=== PATIENT | female | born 1985 ===

== ENCOUNTER 2020-06-02 11:46 | Emergency (ER) | payer SELFPAY ==
--- NOTE | 2020-06-02 13:12 | Emergency Department Report ---
Blank Doc - Documentation Documentation: 35-year-old female that presents with several syncopal episodes. Patient pam carney is on detox program for alcohol abuse the past 8 days. Patient also is complaining of tremors. Last alcoholic drink was 8 days ago. 1- This initial assessment/diagnostic orders/clinical plan/ treatment(s) is/are subject to change based on pt's health status, clinical progression and re- assessment by fellow clinical providers in the ED. Further treatment and workup at subsequent clinical provers discretion. Patient/guardians urged not to elope from ED as their condition may be serious if not clinically assessed and managed. 2-labs 3-UA 4-CT head
[2020-06-02 13:50] LABS: Basophils # (Auto) 0.1 K/mm3 (0.0-0.1); Basophils % (Auto) 1.1 % (0.0-1.8); Eosinophils # (Auto) 0.6 K/mm3 (0.0-0.4); Eosinophils % (Auto) 6.7 % (0.0-4.3); Hematocrit 36.6 % (30.3-42.9); Hemoglobin 12.4 gm/dl (10.1-14.3); Lymphocytes # (Auto) 2.3 K/mm3 (1.2-5.4); Lymphocytes % (Auto) 27.3 % (13.4-35.0); Mean Corpuscular HGB Conc 34 % (30-34); Mean Corpuscular Volume 90 fl (79-97); Monocytes # (Auto) 0.7 K/mm3 (0.0-0.8); Platelet Count 385 K/mm3 (140-440); Red Blood Count 4.05 M/mm3 (3.65-5.03); Red Cell Distribution Width 14.6 % (13.2-15.2)
[2020-06-02 14:28] LABS: Bacteria,Urine 2+ /HPF (Negative); Bilirubin,Urine NEG (Negative); Blood,Urine MOD (Negative); Color,Urine Yellow (Yellow); Mucus,Urine FEW /HPF; Protein,Urine <15 mg/dL mg/dL (Negative); Urobilinogen,Urine < 2.0 mg/dL (<2.0)
[2020-06-02 15:00] LABS: Creatine Kinase MB < 1.0 ng/mL (0.0-4.0)
--- NOTE | 2020-06-02 15:17 | Cat Scan Report ---
CT head/brain wo con INDICATION / CLINICAL INFORMATION: 35 years Female; Syncope. TECHNIQUE: Routine CT head without contrast. All CT scans at this location are performed using CT dos e reduction for ALARA by means of automated exposure control. COMPARISON: None. FINDINGS: BRAIN / INTRACRANIAL CONTENTS: No acute hemorrhage, mass effect, midline shift, hydrocephalus, or acu te, large territorial infarct. No signs of significant atrophy or chronic infarct. No significant whi te matter abnormality seen. CRANIOCERVICAL JUNCTION: No significant abnormality. ORBITS: No significant abnormality of visualized orbits. SINUSES / MASTOIDS: Mild to moderate mucosal thickening in the ethmoids. ADDITIONAL FINDINGS: None. IMPRESSION: 1. No focal mass, hemorrhage, hydrocephalus, or acute, large territorial infarct. Signer Name: Alberto Patel MD, III Signed: 06/02/2020 3:13 PM Workstation Name: [id number]
[2020-06-02 15:34] LABS: Amphetamine Screen,Urine PRESUMPTIVE NEGATIVE; Benzodiazepines Screen,Urine PRESUMPTIVE NEGATIVE; Cannabinoid Screen,Urine PRESUMPTIVE POSITIVE; Cocaine Screen,Urine PRESUMPTIVE NEGATIVE; Methadone Screen,Urine PRESUMPTIVE NEGATIVE; Opiate Screen,Urine PRESUMPTIVE NEGATIVE
[2020-06-02] MEDS ORDERED: ACETAMINOPHEN 500 MG TAB PO ONE (18:25)
[2020-06-02] MEDS ORDERED: IBUPROFEN 800 MG TAB PO ONE (18:25)
[2020-06-02] MEDS ORDERED: LORazepam 1 MG TAB PO ONE (18:25)
--- NOTE | 2020-06-02 18:42 | Emergency Department Report ---
ED General Adult HPI - General Chief complaint: Syncope Stated complaint: SYNCOPE Time Seen by Provider: 06/02/20 13:02 Source: patient, EMS Mode of arrival: Ambulatory Limitations: No Limitations - History of Present Illness Initial comments: The patient presents to the emergency department the chief complaint of passing out. Patient states she was in class at her recovery center when she began to get hot and clammy. Patient states she stood up to ask the teacher if she can be excused when she passed out. Patient states that she did have chest pain or shortness of breath prior to passing out or currently. Patient states this occurred around 10 AM this morning. Patient has not eaten breakfast this morning and states that she did not have a regular dinner last night. Patient has a history of syncope and seizures. Patient is very anxious on exam and asked if she can have some Ativan to settle her down. Patient is at the recovery center for alcohol abuse. Patient also complains of a mild headache and describes it as throbbing in nature and not the worst headache of her life. -: Sudden Location: head Severity scale (0 -10): 3 Quality: other (Throbbing) Consistency: constant Improves with: none Worsens with: none Associated Symptoms: denies other symptoms Treatments Prior to Arrival: none - Related Data Allergies Allergy/AdvReac Type Severity Reaction Status Date / Time codeine Allergy Hives Verified 06/02/20 12:49 ED Review of Systems ROS: Stated complaint: SYNCOPE Other details as noted in HPI Comment: All other systems reviewed and negative Constitutional: denies: chills, fever Eyes: denies: eye pain, eye discharge, vision change ENT: denies: ear pain, throat pain Respiratory: denies: cough, shortness of breath, wheezing Cardiovascular: denies: chest pain, palpitations Endocrine: no symptoms reported Gastrointestinal: denies: abdominal pain, nausea, diarrhea Genitourinary: denies: urgency, dysuria, discharge Musculoskeletal: denies: back pain, joint swelling, arthralgia Skin: denies: rash, lesions Neurological: denies: headache, weakness, paresthesias Psychiatric: denies: anxiety, depression Hematological/Lymphatic: denies: easy bleeding, easy bruising ED Past Medical Hx - Past Medical History Additional medical history: SVT/ ANEMIA - Social History Smoking Status: Never Smoker Substance Use Type: Alcohol ED Physical Exam - General Limitations: No Limitations General appearance: alert, in no apparent distress, anxious - Head Head exam: Present: atraumatic, normocephalic - Eye Eye exam: Present: normal appearance - ENT ENT exam: Present: mucous membranes moist - Neck Neck exam: Present: normal inspection - Respiratory Respiratory exam: Present: normal lung sounds bilaterally. Absent: respiratory distress, wheezes - Cardiovascular Cardiovascular Exam: Present: regular rate, normal rhythm. Absent: systolic murmur, diastolic murmur, rubs, gallop - GI/Abdominal GI/Abdominal exam: Present: soft, normal bowel sounds. Absent: distended, tend erness - Extremities Exam Extremities exam: Present: normal inspection - Back Exam Back exam: Present: normal inspection - Neurological Exam Neurological exam: Present: alert, oriented X3, CN II-XII intact, other (Normal finger-nose, [id number], rapid hand movement). Absent: motor sensory deficit - Psychiatric Psychiatric exam: Present: normal affect, normal mood - Skin Skin exam: Present: warm, dry, intact, normal color. Absent: rash ED Course Vital Signs 06/02/20 06/02/20 06/02/20 12:55 17:53 18:00 Temperature 98.3 F Pulse Rate 55 L Pulse Rate [ 56 L Lying] Pulse Rate [ 58 L Sitting] Pulse Rate [ 50 L Standing] Respiratory 18 16 Rate Blood Pressure 115/69 Blood Pressure 125/69 [Lying] Blood Pressure 126/69 [Sitting] Blood Pressure 130/78 [Standing] O2 Sat by Pulse 100 99 Oximetry ED Medical Decision Making - Lab Data Result diagrams: 06/02/20 13:20 Lab Results 06/02/20 06/02/20 06/02/20 Range/Units 13:20 13:20 13:20 WBC 8.3 (4.5-11.0) K/mm3 RBC 4.05 (3.65-5.03) M/mm3 Hgb 12.4 (10.1-14.3) gm/dl Hct 36.6 (30.3-42.9) % MCV 90 (79-97) fl MCH 31 (28-32) pg MCHC 34 (30-34) % RDW 14.6 (13.2-15.2) % Plt Count 385 (140-440) K/mm3 Lymph % (Auto) 27.3 (13.4-35.0) % [place] % (Auto) 8.0 H (0.0-7.3) % Eos % (Auto) 6.7 H (0.0-4.3) % Baso % (Auto) 1.1 (0.0-1.8) % Lymph # (Auto) 2.3 (1.2-5.4) K/mm3 [place] # (Auto) 0.7 (0.0-0.8) K/mm3 Eos # (Auto) 0.6 H (0.0-0.4) K/mm3 Baso # (Auto) 0.1 (0.0-0.1) K/mm3 Seg Neutrophils % 56.9 (40.0-70.0) % Seg Neutrophils # 4.7 (1.8-7.7) K/mm3 Magnesium 2.10 (1.7-2.3) mg/dL Total Creatine Kinase 129 (30-135) units/L CK-MB (CK-2) < 1.0 (0.0-4.0) ng/mL CK-MB (CK-2) Rel Index 0.7 (0-4) Troponin T < 0.010 (0.00-0.029) ng/mL HCG, Qual Negative (Negative) Urine Color (Yellow) Urine Turbidity (Clear) Urine pH (5.0-7.0) Ur Specific [place] (1.003-1.030) Urine Protein (Negative) mg/dL Urine Glucose (UA) (Negative) mg/dL Urine Ketones (Negative) mg/dL Urine Blood (Negative) Urine Nitrite (Negative) Urine Bilirubin (Negative) Urine Urobilinogen (<2.0) mg/dL Ur Leukocyte Esterase (Negative) Urine WBC (Auto) (0.0-6.0) /HPF Urine RBC (Auto) (0.0-6.0) /HPF U Epithel Cells (Auto) (0-13.0) /HPF Urine Bacteria (Auto) (Negative) /HPF Urine Mucus /HPF Urine Opiates Screen Urine Methadone Screen Ur Barbiturates Screen Ur Phencyclidine Scrn Ur Amphetamines Screen U Benzodiazepines Scrn Urine Cocaine Screen U Marijuana (THC) Screen Drugs of Abuse Note Plasma/Serum Alcohol (0-0.07) % 06/02/20 06/02/20 06/02/20 Range/Units 13:20 Unknown Unknown WBC (4.5-11.0) K/mm3 RBC (3.65-5.03) M/mm3 Hgb (10.1-14.3) gm/dl Hct (30.3-42.9) % MCV (79-97) fl MCH (28-32) pg MCHC (30-34) % RDW (13.2-15.2) % Plt Count (140-440) K/mm3 Lymph % (Auto) (13.4-35.0) % [place] % (Auto) (0.0-7.3) % Eos % (Auto) (0.0-4.3) % Baso % (Auto) (0.0-1.8) % Lymph # (Auto) (1.2-5.4) K/mm3 [place] # (Auto) (0.0-0.8) K/mm3 Eos # (Auto) (0.0-0.4) K/mm3 Baso # (Auto) (0.0-0.1) K/mm3 Seg Neutrophils % (40.0-70.0) % Seg Neutrophils # (1.8-7.7) K/mm3 Magnesium (1.7-2.3) mg/dL Total Creatine Kinase (30-135) units/L CK-MB (CK-2) (0.0-4.0) ng/mL CK-MB (CK-2) Rel Index (0-4) Troponin T (0.00-0.029) ng/mL HCG, Qual (Negative) Urine Color Yellow (Yellow) Urine Turbidity Slightly-cloudy (Clear) Urine pH 8.0 H (5.0-7.0) Ur Specific [place] 1.006 (1.003-1.030) Urine Protein <15 mg/dl (Negative) mg/dL Urine Glucose (UA) Neg (Negative) mg/dL Urine Ketones Neg (Negative) mg/dL Urine Blood Mod (Negative) Urine Nitrite Neg (Negative) Urine Bilirubin Neg (Negative) Urine Urobilinogen < 2.0 (<2.0) mg/dL Ur Leukocyte Esterase Neg (Negative) Urine WBC (Auto) 4.0 (0.0-6.0) /HPF Urine RBC (Auto) 1.0 (0.0-6.0) /HPF U Epithel Cells (Auto) 14.0 H (0-13.0) /HPF Urine Bacteria (Auto) 2+ (Negative) /HPF Urine Mucus Few /HPF Urine Opiates Screen Presumptive negative Urine Methadone Screen Presumptive negative Ur Barbiturates Screen Presumptive negative Ur Phencyclidine Scrn Presumptive negative Ur Amphetamines Screen Presumptive negative U Benzodiazepines Scrn Presumptive negative Urine Cocaine Screen Presumptive negative U Marijuana (THC) Screen Presumptive positive Drugs of Abuse Note Disclamer Plasma/Serum Alcohol < 0.01 (0-0.07) % - EKG Data -: EKG Interpreted by Me EKG shows normal: sinus rhythm Rate: bradycardia - Radiology Data Radiology results: report reviewed - Medical Decision Making Discussed results with patient Critical care attestation.: If time is entered above; I have spent that time in minutes in the direct care of this critically ill patient, excluding procedure time. ED Disposition Clinical Impression: Vasovagal episode Disposition: DC-01 TO HOME OR SELFCARE Is pt being admited?: No Does the pt Need Aspirin: No Condition: Stable Instructions: Syncope (ED), Syncope Additional Instructions: RETURN IF WORSE Referrals: PRIMARY CAREMD [Primary Care Provider] - 3-5 Days RHONA LOVING MD [Staff Physician] - 3-5 Days Time of Disposition: 18:42
[2020-06-02 18:51] VITALS: BP 125/64
== END 2020-06-02 18:57 | disposition home or self-care (01) ==
LOC: ED 11:46
DX: R55 Syncope and collapse (principal); D64.9 Anemia, unspecified; Z88.6 Allergy status to analgesic agent
CPT/HCPCS: 36415; 70450; 80307; 80320; 81001; 82550; 82553; 83735; 84484; 84703; 85025; 93005; G0480